=== PATIENT | female | born 1970 | race Two or more races ===

== ENCOUNTER → 2018-02-08 | Outpatient (CLI) | payer BC ==
[~2018-02-08] MED LIST: OMNIPAQUE 350 MG/ML, 100ML BOTTLE ONE
== END | disposition home or self-care (01) ==
LOC: CFH 13:38
PROVIDERS: ATTEND Nurse Practitioner Family
DX: H57.10 Ocular pain, unspecified eye (principal)
CPT/HCPCS: 70460; Q9967

== ENCOUNTER 2021-05-01 10:14 | Outpatient (CLI) | payer BC, OTHER | END 2021-05-01 23:59 | disposition home or self-care (01) | LOC: RAD 10:14 | PROVIDERS: ATTEND Family Medicine | DX: R22.0 Localized swelling, mass and lump, head (principal) | CPT/HCPCS: 76536 ==